=== PATIENT | female | born 1945 | race Two or more races ===

== ENCOUNTER 2024-06-03 07:00 | Outpatient (CLI) | payer OTHER ==
[2024-06-03 10:07] LABS: URINE APPEARANCE Clear; URINE BILIRRUBIN Negative (NEGATIVE); URINE BLOOD Negative; URINE COLOR Yellow; URINE GLUCOSE Negative (NEGATIVE); URINE KETONE Negative (NEGATIVE); URINE LEUKOCYTE Negative; URINE NITRATE Negative; URINE PROTEIN 30 (NEGATIVE); URINE UROBILINOGEN 0.2 E.U./dl
[2024-06-03 10:08] LABS: URINE EPITHELIAL CELLS 13.4 uL (0.0-38.8); URINE RBC 18.9 uL (0.0-20.8); URINE WBC 12.9 uL (0.0-23.2)
[2024-06-03 10:14] LABS: URINE CAST 1.06 uL (0.0-1.40)
[2024-06-03] MEDS ORDERED: HYDRALAZINE 50 MG (10:29)
[2024-06-03] MEDS ORDERED: FOSAMAX PLUS D1 EAC1 (10:29)
[2024-06-03] MEDS ORDERED: LASIX20 MG (10:30)
[2024-06-03] MEDS ORDERED: NORVASC10 MG (10:30)
[2024-06-03] MEDS ORDERED: PEPCID 40MG (10:30)
[2024-06-03] MEDS ORDERED: METFORMIN HCL500 M3 (10:31)
[2024-06-03 10:33] LABS: INR 0.97; PARTIAL THROMBOPLASTIN TIME 28.8 SECONDS (22.0-34.0); PROTHROMBIN TIME 10.2 SECONDS (9.0-11.5)
[2024-06-03] MEDS ORDERED: SYNTHROID112 MCG (10:33)
[2024-06-03] MEDS ORDERED: NEUROTIN 400MG (10:33)
[2024-06-03] MEDS ORDERED: SYNTHROID100 MCG (10:34)
[2024-06-03 11:23] LABS: BILIRUBIN TOTAL 0.4 mg/dL (0.3-1.2); CALCIUM 9.6 mg/dL (8.5-10.1); CREATININE SERUM 0.56 mg/dL (0.55-1.02); GFR 104.97; GLOBULINA 3.5 G/DL (2.4-3.5); POTASSIUM 3.88 mEq/L (3.5-5.1); TOTAL PROTEIN 7.5 gm/dL (6.4-8.2)
[2024-06-03 11:52] LABS: HEMATOCRIT 37.5 % (36.0-45.00); HEMOGLOBIN 12.5 g/dL (12.0-15.00); MEAN CELL VOLUME 90.6 fL (80.00-100.00); MEAN CORPUSCULAR HEMOGLOBIN 30.3 pg (27.00-32.0); MEAN CORPUSCULAR HGB CONC 33.4 g/dl (32.0-36.0); PLATELET COUNT 325 K/uL (150-450); RED BLOOD COUNT 4.14 M/uL (4.00-6.00); RED CELL DISTRIBUTION WIDTH 14.3 % (11.5-14.5)
== END 2024-06-03 07:05 | disposition home or self-care (01) ==
LOC: LAB 07:00 → RAD 07:00 → LAB 07:05 → ADM 09:45 → EDSTATUS 06-09 09:45 → EDBD 06-09 09:45 → CIR.AMB 06-09 09:45
PROVIDERS: ATTEND Colon & Rectal Surgery
DX: K64.2 Third degree hemorrhoids (principal); K64.4 Residual hemorrhoidal skin tags; K92.1 Melena; I10 Essential (primary) hypertension

== ENCOUNTER 2024-07-21 06:13 | Day surgery (SDC) | payer OTHER ==
[2024-07-16 10:47] LABS: URINE APPEARANCE Clear; URINE BILIRRUBIN Negative (NEGATIVE); URINE BLOOD Moderate; URINE COLOR Yellow; URINE GLUCOSE Negative (NEGATIVE); URINE KETONE Negative (NEGATIVE); URINE LEUKOCYTE Trace; URINE NITRATE Negative; URINE PROTEIN 30 (NEGATIVE); URINE UROBILINOGEN 0.2 E.U./dl
[2024-07-16 10:48] LABS: URINE EPITHELIAL CELLS 23.9 uL (0.0-38.8); URINE RBC 127.9 uL (0.0-20.8); URINE WBC 18.8 uL (0.0-23.2)
[2024-07-16 11:03] LABS: HEMATOCRIT 36.1 % (36.0-45.00); HEMOGLOBIN 12.1 g/dL (12.0-15.00); MEAN CELL VOLUME 88.1 fL (80.00-100.00); MEAN CORPUSCULAR HEMOGLOBIN 29.5 pg (27.00-32.0); MEAN CORPUSCULAR HGB CONC 33.5 g/dl (32.0-36.0); PLATELET COUNT 281 K/uL (150-450); RED CELL DISTRIBUTION WIDTH 14.2 % (11.5-14.5)
[2024-07-16 11:19] LABS: INR 1.01
[2024-07-16 11:38] LABS: ALBUMIN 3.9 gm/dL (3.4-5.0); BILIRUBIN TOTAL 0.5 mg/dL (0.3-1.2); CALCIUM 9.3 mg/dL (8.5-10.1); CREATININE SERUM 0.59 mg/dL (0.55-1.02); GFR 98.83; GLOBULINA 3.4 G/DL (2.4-3.5); POTASSIUM 3.94 mEq/L (3.5-5.1); TOTAL PROTEIN 7.3 gm/dL (6.4-8.2)
[~2024-07-21 06:13] MED LIST: FOSAMAX PLUS D1 EAC1; HYDRALAZINE 50 MG; LASIX20 MG; METFORMIN HCL500 M3; NEUROTIN 400MG; NORVASC10 MG; PEPCID 40MG; SYNTHROID100 MCG; SYNTHROID112 MCG
[2024-07-21] MEDS ORDERED: LIDOCAINE HCL 1%/EPINEPHRINE 20ML VIAL IJ ONE (10:30)
[2024-07-21] MEDS ORDERED: HEMOSTATIC MATRIX 1 KIT KIT TOP ONE (10:30)
[2024-07-21] MEDS ORDERED: METROnidazole 500 MG TABLET PO SCH (10:30)
[2024-07-21] MEDS ORDERED: POVIDONE-IODINE 118 ML BOTT TOP ONE (10:30)
[2024-07-21] MEDS ORDERED: CEFTRIAXONE SODIUM 2,000 MG VIAL IV SCH (10:30)
[2024-07-21] MEDS ORDERED: DIBUCAINE 30 GM TUBE RECTAL ONE (10:30)
== END 2024-07-21 15:55 | disposition home or self-care (01) ==
LOC: CIR.AMB 06:13
PROVIDERS: ATTEND Colon & Rectal Surgery
DX: K64.2 Third degree hemorrhoids (principal); K64.8 Other hemorrhoids; K64.4 Residual hemorrhoidal skin tags; I10 Essential (primary) hypertension